=== PATIENT | male | born 1985 | race Caucasian/White ===

== ENCOUNTER 2021-02-18 17:56 | Emergency (ER) | payer OTHER ==
[2021-02-18 18:07] VITALS: BP 137/69
[2021-02-18] MEDS ORDERED: BUFFERED LIDOCAINE 10 ML SYRINGE SUBQ STA (18:17)
--- NOTE | 2021-02-18 18:18 | ED Physician Documentation ---
History of Present Illness - Stated complaint Stated Complaint: INGROWN HAIR/STOMACH - Chief complaint Chief Complaint: General - History obtained from History obtained from: Patient (Increasingly painful ingrown hair on the left abdominal wall with worsening redness despite starting Bactrim from walk-in clinic yesterday. No fevers.) Review of Systems Constitutional: reports: Reviewed and negative Eyes: reports: Reviewed and negative Ears: reports: Reviewed and negative Nose: reports: Reviewed and negative PD PAST MEDICAL HISTORY - Past Medical History Past Medical History: No - Allergies Allergies/Adverse Reactions: Allergies Allergy/AdvReac Type Severity Reaction Status Date / Time No Known Drug Allergies Allergy Verified 02/18/21 18:08 - Social History Does the pt smoke?: Yes Smoking Status: Current some day smoker PD ED PE NORMAL - Vitals Vital signs reviewed: Yes - General General: Alert and oriented X 3, No acute distress - Derm Derm: Other (Left mid abdominal wall there is a pointed abscess with induration and cellulitis) - Neuro Neuro: Alert and oriented X 3, Normal speech Results - Vitals Vitals: Vital Signs - 24 hr 02/18/21 18:01 Temperature 36.6 C Heart Rate 74 Respiratory 15 Rate Blood Pressure 137/69 H O2 Saturation 100 Oxygen O2 Source Room air Procedures - Abscess I&D (location) Abd wall Preparation: Lidocaine 1% Incision: Incised with scalpel, Purulent drainage, Loculations broken, Packed, Culture obtained Other: Pt tolerated well, Dressing applied Departure - Departure Disposition: 01 Home, Self Care Clinical Impression: Abscess Condition: Good Record reviewed to determine appropriate education?: Yes Instructions: ED Abscess IandD Comments: Continue current antibiotic. Remove packing on . Return for new or worsening symptoms. Forms: Activity restrictions
== END 2021-02-18 18:46 | disposition home or self-care (01) ==
LOC: ED 17:56
DX: L02.211 Cutaneous abscess of abdominal wall (principal); F17.200 Nicotine dependence, unspecified, uncomplicated
CPT/HCPCS: 10060; 87070; 87181; 87205